=== PATIENT | female | born 1985 | race Caucasian/White ===

== ENCOUNTER → 2021-03-08 13:42 | Outpatient (CLI) | payer OTHER, SELFPAY ==
[2021-03-08 14:01] LABS: COVID19 -Nasal RAPID Negative (Negative)
== END ==
PROVIDERS: PCP Specialist; Referring Provider Specialist; Visit Provider Specialist
DX: Z01.812 Encounter for preprocedural laboratory examination (principal); Z20.822 Contact with and (suspected) exposure to COVID-19
CPT/HCPCS: 87635

== ENCOUNTER 2021-03-08 14:21 | Day surgery (SDC) | payer OTHER, SELFPAY ==
[2021-03-02 10:39] VITALS: BMI 22.9
--- NOTE | 2021-03-08 | PATH_ITS ---
[facility] Accession Number: [id number] . 01 Material submitted: . PART A: cervix - CERVICAL BIOPSY AT 12 O'CLOCK PART B: cervix - CERVICAL BIOPSY AT 6 O'CLOCK PART C: cervix - CERVICAL BIOPSY-DEEP PART D: endocervix - ENDOCERVICAL BIOPSY . 02 Diagnosis: A. Cervix at 12 o'clock, LEEP Biopsy: Focal involvement by high-grade squamous intraepithelial lesion / DANIELLE 2-3 with glandular extension and adjacent regions of low-grade squamous intraepithelial lesion / DANIELLE-1. The apparent tissue margins are involved by low-grade dysplasia; indeterminate as to which margin. The apparent margins are involved by high-grade squamous intraepithelial lesion / DANIELLE 2-3; indeterminate as to which margin. No invasive tumor identified. . B. Cervical Biopsy at 6 o'clock: Focal involvement by high-grade squamous intraepithelial lesion / DANIELLE-2 with glandular involvement and adjacent regions of low-grade squamous intraepithelial lesion / DANIELLE-1. Low-grade squamous intraepithelial lesion DANIELLE-1 possibly involves the apparent ectocervical margin; electrocautery artifact is obscuring. High-grade squamous intraepithelial lesion / DANIELLE-2 possibly involves the apparent endocervical margin; electrocautery artifact is obscuring. No invasive tumor identified. . C. Cervical Biopsy-Deep: Focal involvement by low-grade squamous intraepithelial lesion / DANIELLE-1. The apparent endocervical margin is negative for dysplasia. The apparent ectocervical margin is negative for dysplasia; tissue disruption is focally obscuring. No invasive tumor identified. Negative for p16 block immunostaining. . D. Endocervical Biopsy: Portions of lower uterine segment; negative for glandular hyperplasia, cytologic atypia, or malignancy. Scant glandular elements, possibly from endocervix; negative for glandular dysplasia or malignancy. Please see comment. V 03/11/2021 1444 Local . 02 Comment: Part D: Due to the scant nature of endocervical tissue in this biopsy, it may not be entirely hvac sales representative of this patient's endocervix; additional sampling could be considered, if clinically appropriate. . 02 Electronically signed: . Gabriela Padilla MD, Pathologist NPI- [id number] . 01 Gross description: . A. Received in formalin, labeled cervical biopsy 12 o'clock consists of a 2.0 x 1.8 cm barraza-pink smooth to granular portion of ectocervix excised to a depth of 0.6 cm. The margin is inked blue. The specimen is serially sectioned and entirely submitted in cassettes A1-A2. B. Received in formalin, labeled cervix 6 o'clock consists of a 1.2 x 0.6 x 0.2 cm barraza-pink portion of cervix. The margin is inked blue. The specimen is serially sectioned and entirely submitted in cassette B1. C. Received in formalin, labeled cervical biopsy deep consists of a 1.1 x 1.0 x 0.7 cm barraza-pink portion of cervix, which is inked blue, serially sectioned and entirely submitted in cassettes C1-C3. D. Received in formalin, labeled endocervical biopsy consists of multiple barraza-pink fragments of soft tissue admixed with mucus and clotted blood measuring 2.0 x 1.0 x 0.3 cm in aggregate. The specimen is filtered and entirely submitted in cassette D1. ([id number]) /MRV 03/09/2021 [facility]7 Local . 02 Microscopic: . Part A: An immunohistochemical stain for p16 is performed on block A2 to evaluate for block reactivity and shows a minute focus of p16 block immunostaining. The control stained with appropriate reactivity. . P16 block immunostaining supports the presence of high risk HPV DNA in this biopsy. . Part C: An immunohistochemical stain for p16 is performed on blocks C1, C2 and C3 to evaluate for block reactivity and is negative for block immunostaining. The control stained with appropriate reactivity. . The absence of p16 block immunostaining mitigates against the presence of high risk HPV DNA in this biopsy. . . * This test was developed and its performance characteristics determined by [employer]. It has not been cleared or approved by the [place]. Food and Drug Administration. The FDA has determined that such clearance or approval is not necessary. This test is used for clinical purposes. It should not be regarded as investigational or for research. . 02 Pathologist provided ICD-10: N87.1, N87.0 . 02 CPT . 484676, 056258, 206871, 282124, [id number] Performed at: 01 [facility] [address] [id number] MD Chidi Kat MD Phone: [phone] Performed at: 02 [place] [id number] [place] [id number] MD Larissa Glover MD Phone: [phone]
[2021-03-08 15:10] VITALS: BP 103/67; PULSE 78; RESP 16; TEMP 36.8; O2SAT 100; BMI 22.9
[2021-03-08] MEDS: LACTATED RINGERS 1,000 ML 100 ML IV (15:34)
--- NOTE | 2021-03-08 15:50 | PM.PREOP ---
Pre-operative Note COVID-19 COVID-19 status: Negative Result date/Date tested (Pos, Neg/Pending): 03/08/21 Interval Note History & Physical reviewed/Exam performed by Physician: Yes Changes to H&P: No
[2021-03-08] MEDS: BUPIVACAINE 0.5% (PF) VIAL 30 ML INJ (16:25)
[2021-03-08] MEDS: EPINEPHrine 1 MG/ML 0.15 MG INJ (16:25)
[2021-03-08] MEDS: FERRIC SUBSULFATE 8 GM SOLUTION 8 ML TOP (16:30)
[2021-03-08 16:37] VITALS: BP 111/63; PULSE 103; RESP 17; TEMP 36.4; O2SAT 98
--- NOTE | 2021-03-08 16:39 | P.OP_ITS ---
Operative Date/Time/Diagnoses Date of procedure: 03/08/21 Time of procedure: 16:39 Pre-op diagnosis: DANIELLE 2-3 on cervical biopsies Post-op diagnosis: same Procedure & Clinicians Procedure: LEEP Same procedure as scheduled: Yes Indications: DANIELLE 2-3 on cervical biopsies Surgeon: Kamilah Reyes Click Yes if Unassisted: Yes Anesthesia Type: General Operative Notes Findings: very minimal area of nonstaining with Lugol's Closure Type: not applicable Specimen(s): other ( LEEP cervical biopsies at 12, 6, deep and ECC) Estimated Blood Loss (mL): 5 Blood products transfused: none Procedure in detail: Patient was brought to the operating room where she underwent general anesthesia. She was placed in low Yellofin stirrups and draped in the usual sterile fashion. The cervix was stained with Lugol's. The cervix was injected with 30 cc of 0.5% Marcaine with epinephrine. a single- tooth tenaculum was placed on the anterior lip of the cervix. Using the loop set at 60 w of cutting the entire squamocolumnar junction was removed. There is an area at 6:00 o'clock that was less stained so this was removed as well and sent separately. A deep section was removed with the LEEP. An ECC was performed. Bleeding was treated with the ball cautery set at 40 w coag. The area of the LEEP cautery was extended with the ball cautery. Monsel's was placed. Patient went to recovery room in good condition. Counts of instruments and sponges were correct. Complications: none Post-operative Condition: stable Disposition: same day surgery Plan for aftercare: Home when awake and stable. Treatment and follow-up based on biopsy results.
--- NOTE | 2021-03-08 16:42 | SUR.OPER ---
Lithotomy on padded OR bed, head on pillow, arms secured on padded arm boards at <90 degrees abduction. Legs secured in padded yellow fins stirrups.
[2021-03-08 16:45] VITALS: BP 120/78; PULSE 104; RESP 13; O2SAT 97
[2021-03-08 16:50] VITALS: BP 129/64; PULSE 91; RESP 13; O2SAT 99
[2021-03-08] MEDS: fentaNYL 100 MCG/2 ML INJ IV (16:59)
[2021-03-08] MEDS: OXYCODONE/ACETAMINOPHEN 5/325 TABLET 1 TAB PO (17:00)
[2021-03-08 17:39] VITALS: BP 100/55; PULSE 72; RESP 13; TEMP 36.6; O2SAT 98
[2021-03-08 17:43] VITALS: BP 98/62; PULSE 68; RESP 15; O2SAT 99
== END 2021-03-08 17:57 | disposition home or self-care (01) ==
PROVIDERS: Referring Provider Specialist; Visit Provider Specialist
PROC: 0UBC7ZZ Excision of Cervix, Via Natural or Artificial Opening (ICD-10-PCS; CPT 57522; principal; 2021-03-08 15:30)
DX: N87.1 Moderate cervical dysplasia (principal); N87.0 Mild cervical dysplasia; Z20.822 Contact with and (suspected) exposure to COVID-19; Z01.812 Encounter for preprocedural laboratory examination
CPT/HCPCS: 57522; 81025; 87635; A9270; J0171; J1100; J1885; J2250; J2405; J2704; J3010